=== PATIENT | female | born 1940 | race Caucasian/White ===

== ENCOUNTER 2021-08-22 01:52 | Emergency (ER) | payer OTHER, SELFPAY ==
[2021-08-22] VITALS (7 sets, daily range): BP systolic 116–150; BP diastolic 55–67; PULSE 62–67; RESP 17; TEMP 36.8; O2SAT 92–97
--- NOTE | 2021-08-22 02:20 | DI.RAD.S_ITS ---
PROCEDURE: XR CHEST 1V INDICATIONS: chest pain right side TECHNIQUE: One view of the chest was acquired. COMPARISON: None. FINDINGS: Surgical changes and devices: None. Lungs and pleura: Lungs are clear. No pleural effusions or pneumothorax. Mediastinum: Mediastinal contours appear normal. Heart size is normal. Bones and chest wall: No suspicious bony lesions. Overlying soft tissues appear unremarkable. IMPRESSION: No acute cardiopulmonary disease process. Dictated by: Misa Llamas MD, PhD on 08/22/2021 at 7:37 Approved by: Misa Llamas MD, PhD on 08/22/2021 at 7:37
--- NOTE | 2021-08-22 02:21 | ED.CHESTPAIN ---
HPI - Chest Pain General Chief Complaint: Chest Pain Stated Complaint: chest pain Time Seen by Provider: 08/22/21 02:01 Source: patient and EMS Mode of arrival: EMS Limitations: no limitations History of Present Illness HPI narrative: Patient is a 80-year-old happily demented female who has history of dementia, hypertension, hyperlipidemia who presents by EMS from her assisted living facility for right-sided chest discomfort. It has been ongoing for at least 24 hours she overall is not the greatest historian but is A&O x3. Patient was seen and evaluated with workup at [facility] last night for the same. She had EKG blood work and chest x-ray and was discharged. Today she reports again right-sided chest discomfort not necessarily worse with arm movement. Can not say if it is better or worse with exertion denies really shortness of breath. Related Data Allergies Allergy/AdvReac Type Severity Reaction Status Date / Time atorvastatin [From Lipitor] Allergy Verified 08/22/21 02:10 codeine Allergy Verified 08/22/21 02:10 Sulfa (Sulfonamide Allergy Verified 08/22/21 02:10 Antibiotics) Review of Systems Review of Systems Narrative: GENERAL: Denies chills, fatigue, malaise, fever, sweats, travel HEENT: Denies sinus pain, ear pain, sore throat, difficulty swallowing, neck pain RESPIRATORY: Denies dyspnea, cough, wheezing, hemoptysis, sputum. CARDIOVASCULAR: See HPI GASTROINTESTINAL: Denies nausea, vomiting, abdominal pain, diarrhea, constipation, melena. : Denies dysuria, frequency, incontinence, hematuria, urinary retention, flank pain. MUSCULOSKELETAL: Denies weakness, joint pain, or bony pain SKIN: No rash, no erythema, no pruritus NEUROLOGIC: Denies weakness, dizziness, headache, numbness, change in speech, confusion PSYCHIATRIC: No concerning psychosocial issues. 12 point review of systems is negative except for those stated above and HPI Patient History Medical History (Updated 08/22/21 @ 03:37 by Abbey Saleh DO) Dementia Hyperlipidemia Exam Initial Vital Signs Initial Vital Signs: Vital Signs Temperature 98.2 F 08/22/21 01:57 Pulse Rate 67 08/22/21 01:57 Respiratory Rate 17 08/22/21 01:57 Blood Pressure 150/67 H 08/22/21 01:57 Pulse Oximetry 96 08/22/21 01:57 Oxygen Delivery Method 08/22/21 01:57 GENERAL: Alert pleasant 72-year-old female mildly demented laughing no acute distress HEENT: Head atraumatic,EOMI, pupils reactive, face symmetric, moist mucous membranes CARDIOVASCULAR: Regular rate and rhythm without murmurs, rubs or gallops. RESPIRATORY: Breath sounds equal bilaterally, no wheezes rales or rhonchi. ABDOMEN: Soft, nontender. Normoactive bowel sounds all 4 quadrants. No guarding or rebound. EXTREMITIES: Normal range of motion, no clubbing or edema. Neurovascularly intact NEUROLOGICAL: Alert and oriented x3 SKIN: Right breast actually has 2 areas of erythema no abscess induration, no vesicles Course Orders Ordered: ED Orders 08/22/21 01:57 EKG-12 Lead Stat 08/22/21 02:20 XR chest 1V Stat Complete Blood Count AUTO DIFF Stat Comprehensive Metabolic Panel Stat D Dimer Stat Lipase Stat Troponin & CK Cardiac Panel Stat Discontinued Medications Ketorolac Tromethamine (Ketorolac 30 Mg/Ml Vial) 15 mg IV NOW ONE Stop: 08/22/21 03:34 Last Admin: 08/22/21 03:51 Dose: 15 mg Documented By: MYKE Vital Signs Vital signs: Vital Signs - 8 hr 08/22/21 01:57 08/22/21 02:51 08/22/21 02:53 Temperature 98.2 F Pulse Rate 67 65 Respiratory Rate 17 Blood Pressure 150/67 H 133/62 Pulse Oximetry 96 97 Oxygen Delivery Method Room Air 08/22/21 02:53 08/22/21 03:00 08/22/21 03:31 Temperature Pulse Rate 63 Respiratory Rate Blood Pressure 116/55 L 136/61 Pulse Oximetry Oxygen Delivery Method 08/22/21 03:52 08/22/21 04:00 08/22/21 04:00 Temperature Pulse Rate 67 62 Respiratory Rate Blood Pressure 119/58 L Pulse Oximetry 96 92 Oxygen Delivery Method MDM - Chest Pain Lab Data Result diagrams: 08/22/21 02:20 08/22/21 02:20 Labs: Lab Results 08/22/21 08/22/21 08/22/21 Range/Units 02:20 02:20 02:20 WBC 7.8 (4.5-11.0) X10^3/uL RBC 4.79 (4.0-5.2) X10^6/uL Hgb 13.9 (12.0-16.0) g/dL Hct 42.4 (36-46) % MCV 88.5 (80-100) fL MCH 29.0 (26-34) PG MCHC 32.7 (30-36) % RDW 15.0 H (11.6-14.8) % Plt Count 456 H (150-400) X10^3/uL Neut % (Auto) 69.2 (50-75) % Lymph % (Auto) 17.9 L (25-40) % [place] % (Auto) 10.1 (3-14) % Eos % (Auto) 2.1 (2-4) % Baso % (Auto) 0.7 (0-2) % Neut # (Auto) 5400 (6716-6786) /uL Lymph # (Auto) 1400 (4048-4769) /uL [place] # (Auto) 800 (0-900) /uL Eos # (Auto) 200 (0-450) /uL Baso # (Auto) 100 (0-100) /uL D-Dimer < 200 (<230) ng/mL Sodium 137 (137-145) mmol/L Potassium 3.7 (3.4-5.1) mmol/L Chloride 103 (98-107) mmol/L Carbon Dioxide 28 (22-32) mmol/L BUN 17 (7-17) mg/dL Creatinine 0.77 (0.52-1.04) mg/dL Estimated GFR > 60 (>60) mL/min BUN/Creatinine Ratio 22.1 H (6-22) Glucose 97 (80-110) mg/dL Calcium 8.7 (8.4-10.2) mg/dL Total Bilirubin 0.6 (0.2-1.3) mg/dL AST 27 (14-36) IU/L ALT 13 (<35) IU/L Alkaline Phosphatase 68 (38-126) U/L Total Creatine Kinase 22 L (30-135) U/L CK-MB (CK-2) TNP CK-MB (CK-2) Rel Index TNP Troponin I < 0.012 (0.01-0.034) ng/mL Total Protein 6.7 (6.3-8.2) g/dL Albumin 3.8 (3.5-5.0) g/dL Globulin 2.9 (1.7-4.1) g/dL Albumin/Globulin Ratio 1.3 (1.0-2.8) Lipase 75 (23-300) U/L Imaging Data Chest x-ray: Radiologist's Impression: No acute findings ECG Data Interpretation: Normal sinus rhythm rate 60 p.r. interval 184 QRS [address] changes no T-wave inversions MDM Narrative Medical decision making narrative: The patient presents with right-sided chest discomfort she again has a negative workup. His she has cut mild erythema on her right breast which may actually be causing some of her discomfort may be the start of shingles of other shot absolute vesicles there now. The son states that she has been poking at that area for some time. It might be from her and self-inflicted. At this time no cause for of chest discomfort, unlikely to be acute coronary syndrome Discharge Plan Departure Patient Disposition: Home Clinical Impression: Atypical chest pain Instructions: DI for Atypical Chest Pain Activity Restrictions/Additional Instructions: *You have been diagnosed with atypical chest pain *What to do: At this time no cause of chest pain. You do have small rash on her right breast please monitor it may or may not turn into shingles. May also require outpatient workup and stress test. *Continue to take medications as directed 650 mg every 4-6 hours if needed for [id number] *Follow up with your primary care provider in 2-3 days or call [phone] *Return to ER if you should have increasing pain shortness of breath or any new, worsening or concerning symptoms Visit Report Forms: Patient Portal/API
[2021-08-22 02:49] LABS: Alanine Aminotransferase 13 IU/L (<35); Albumin 3.8 g/dL (3.5-5.0); Albumin Globulin Ratio 1.3 (1.0-2.8); Alkaline Phosphatase 68 U/L (38-126); Aspartate Aminotransferase 27 IU/L (14-36); BUN Creatinine Ratio 22.1 (6-22); Bilirubin Total 0.6 mg/dL (0.2-1.3); Blood Urea Nitrogen 17 mg/dL (7-17); Calcium 8.7 mg/dL (8.4-10.2); Carbon Dioxide 28 mmol/L (22-32); Chloride 103 mmol/L (98-107); Creatine Kinase 22 U/L (30-135); Estimated Glomerular Filt Rate > 60 mL/min (>60); Globulin 2.9 g/dL (1.7-4.1); Glucose 97 mg/dL (80-110); HEMOLYSIS < 15 (0-50); Lipase 75 U/L (23-300); Potassium 3.7 mmol/L (3.4-5.1); Sodium 137 mmol/L (137-145); Total Protein 6.7 g/dL (6.3-8.2)
[2021-08-22 02:53] LABS: Add Manual Diff / Slide Review NO; Basophils Absolute Auto 100 /uL (0-100); Basophils Percent Auto 0.7 % (0-2); Eosinophils Absolute Auto 200 /uL (0-450); Eosinophils Percent Auto 2.1 % (2-4); Hematocrit 42.4 % (36-46); Hemoglobin 13.9 g/dL (12.0-16.0); Lymphocytes Absolute Auto 1400 /uL (1100-4500); Lymphocytes Percent Auto 17.9 % (25-40); Mean Corpuscular HGB Conc 32.7 % (30-36); Mean Corpuscular Volume 88.5 fL (80-100); Monocytes Absolute Auto 800 /uL (0-900); Monocytes Percent Auto 10.1 % (3-14); Neutrophils Absolute Auto 5400 /uL (1500-7000); Neutrophils Percent Auto 69.2 % (50-75); Platelet Count 456 X10^3/uL (150-400); Red Blood Cell Count 4.79 X10^6/uL (4.0-5.2); White Blood Cell Count 7.8 X10^3/uL (4.5-11.0)
[2021-08-22 03:01] LABS: Troponin I < 0.012 ng/mL (0.01-0.034)
[2021-08-22] MEDS: KETOROLAC 30 MG/ML VIAL 15 MG IV (03:51)
[2021-08-22 03:58] LABS: D Dimer < 200 ng/mL (<230)
== END 2021-08-22 04:31 | disposition home or self-care (01) ==
PROVIDERS: Emergency Provider Emergency Medicine
DX: R07.89 Other chest pain (principal)
CPT/HCPCS: 71045; 80053; 82550; 83690; 84484; 85025; 85379; 93005; 96374; 99283; 99284; J1885

== ENCOUNTER → 2022-12-24 14:07 | Outpatient (CLI) | payer OTHER, SELFPAY ==
[2022-12-24 14:49] LABS: Basophils Absolute Auto 0 /uL (0-100); Basophils Percent Auto 0.6 % (0-2); Eosinophils Absolute Auto 100 /uL (0-450); Eosinophils Percent Auto 1.6 % (2-4); Hematocrit 46.5 % (36-46); Hemoglobin 15.8 g/dL (12.0-16.0); Lymphocytes Absolute Auto 1000 /uL (1100-4500); Lymphocytes Percent Auto 12.5 % (25-40); Mean Corpuscular HGB Conc 34.1 % (30-36); Mean Corpuscular Hemoglobin 30.2 PG (26-34); Mean Corpuscular Volume 88.6 fL (80-100); Monocytes Absolute Auto 700 /uL (0-900); Neutrophils Absolute Auto 6100 /uL (1500-7000); Neutrophils Percent Auto 76.3 % (50-75); Platelet Count 552 X10^3/uL (150-400); Red Blood Cell Count 5.24 X10^6/uL (4.0-5.2); Red Cell Distribution Width 15.7 % (11.6-14.8); White Blood Cell Count 7.9 X10^3/uL (4.5-11.0)
[2022-12-24 14:50] LABS: Add Manual Diff / Slide Review SLIDE REVIEW
[2022-12-24 15:08] LABS: Anisocytosis 1+
[2022-12-24 15:10] LABS: Alanine Aminotransferase 18 IU/L (<35); Albumin 4.4 g/dL (3.5-5.0); Albumin Globulin Ratio 1.3 (1.0-2.8); Alkaline Phosphatase 87 U/L (38-126); Aspartate Aminotransferase 28 IU/L (14-36); BUN Creatinine Ratio 22.8 (6-22); Bilirubin Total 0.8 mg/dL (0.2-1.3); Blood Urea Nitrogen 18 mg/dL (7-17); Calcium 9.9 mg/dL (8.4-10.2); Carbon Dioxide 28 mmol/L (22-32); Chloride 101 mmol/L (98-107); Estimated Glomerular Filt Rate > 60 mL/min (>60); Globulin 3.5 g/dL (1.7-4.1); Glucose 86 mg/dL (80-110); HEMOLYSIS < 15 (0-50); Sodium 138 mmol/L (137-145); Total Protein 7.9 g/dL (6.3-8.2)
[2022-12-24 21:12] LABS: TSH w/ Reflex to FT4 1.13 uIU/mL (0.47-4.68)
== END ==
PROVIDERS: PCP Family Medicine; Referring Provider Family Medicine; Visit Provider Family Medicine
DX: I10 Essential (primary) hypertension (principal); E78.5 Hyperlipidemia, unspecified
CPT/HCPCS: 36415; 80053; 84443; 85025